=== PATIENT | male | born 1990 | race Caucasian/White ===

== ENCOUNTER 2022-03-19 16:31 | Emergency (ER) | payer OTHER, SELFPAY ==
--- NOTE | ~2022-03-19 | XR_ITS ---
EXAMINATION: XR forearm LT 2V DATE: 03/19/2022 16:59 INDICATION: Left forearm injury and swelling. TECHNIQUE: 2 views of left forearm were obtained. COMPARISON: None. FINDINGS: Bone alignment is normal. No fracture. Joint spaces are normal. There is heterotopic ossifi cation distal to lateral humeral epicondyle. No elbow joint effusion. IMPRESSION: 1. No fracture. Reviewed, dictated and finalized at location A. SANDER IMPRESSION: 1. No fracture.
--- NOTE | ~2022-03-19 | XR_ITS ---
EXAMINATION: XR wrist LT min 3V DATE: 03/19/2022 18:25 INDICATION: Left wrist pain. TECHNIQUE: 4 views of left wrist were obtained. COMPARISON: None. FINDINGS: Bone alignment is normal. No fracture. Joint spaces are normal. IMPRESSION: 1. Normal left wrist. Reviewed, dictated and finalized at location A. HIC ARTIST IMPRESSION: 1. Normal left wrist.
--- NOTE | ~2022-03-19 | US_ITS ---
EXAMINATION: US venous doppler UE DATE: 03/19/2022 18:47 INDICATION: Left forearm pain and swelling. TECHNIQUE: Grayscale ultrasound images without and with compression and Doppler ultrasound images of the left upper extremity veins were obtained. COMPARISON: None. FINDINGS: The visualized portions of the left internal jugular vein, subclavian vein, axillary vein, brachial v eins, basilic vein, cephalic vein, radial vein, and ulnar vein are patent. IMPRESSION: 1. No deep venous thrombosis. Reviewed, dictated and finalized at location A. ITECTURE DRAFTER
[2022-03-19 16:32] VITALS: BP 148/75; PULSE 91; RESP 16; TEMP 36.8; O2SAT 100
--- NOTE | 2022-03-19 18:02 | ED.UPPEXIN ---
HPI - Extremity Injury (Upper) General Chief Complaint: Extremity Injury, Upper Stated Complaint: left arm injury Time Seen by Provider: 03/19/22 17:36 Source: patient Mode of arrival: ambulatory Limitations: no limitations History of Present Illness HPI narrative: Patient is a 31-year-old male who presents the ED with report of left forearm pain and swelling. Patient reports he was at work today and lifting heavy objects when he felt a twinge in his left wrist/forearm. He began having pain and swelling to his left mid forearm, into his left wrist. Pain worse with movement. He has not tried anything for pain. Denies any direct injury. Denies numbness, tingling. Related Data Allergies Allergy/AdvReac Type Severity Reaction Status Date / Time No Known Allergies Allergy Verified 03/19/22 17:30 Review of Systems Review of Systems: CONSTITUTIONAL: Denies fever, chills, or sweats. MUSCULOSKELETAL: See HPI. NEUROLOGIC: Denies tingling, numbness, or weakness. All systems reviewed & are unremarkable except as noted in HPI and below PMFSH Past Medical History Medical History (Updated 03/19/22 @ 19:13 by Yasmin Williamson PA-C) No pertinent past medical history Surgical History Surgical History (Updated 03/19/22 @ 18:03 by Yasmin Williamson PA-C) No pertinent past surgical history Social History Social History (Updated 03/19/22 @ 18:03 by Yasmin Williamson PA-C) Smoking status: Never smoker Exam Narrative: GENERAL: Well appearing, well-nourished, non-toxic, in no acute distress. HEAD: Normocephalic, atraumatic. NECK: Supple. No adenopathy, no masses. RESPIRATORY: Airway patent, respirations nonlabored. CARDIOVASCULAR: Regular rate and rhythm without murmurs, rubs, or gallops. Radial pulses 2+ and equal bilaterally. MUSCULOSKELETAL: Mild limited range of motion of the left wrist flexion, extension, supination/pronation due to pain in left mid forearm. Area of mild swelling noted to left lateral mid forearm. Direct tenderness to palpation. Minimal tenderness over distal radius/ulna/carpal bones. Sensation intact. Good capillary refill. Full ROM of L fingers. No tenderness to palpation over medial or lateral epicondyle of left elbow or over olecranon. SKIN: Warm, dry, normal color. No rashes. NEURO: A&O X3. Speech clear. Cranial nerves II-XII grossly intact. No ataxic movements. PSYCHIATRIC: Appropriate mood and affect. Normal interaction. Course Vital Signs Vital signs: Vital Signs Temperature 98.2 F 03/19/22 16:32 Pulse Rate 91 03/19/22 16:32 Respiratory Rate 16 03/19/22 16:32 Blood Pressure 148/75 H 03/19/22 16:32 Pulse Oximetry 100 03/19/22 16:32 Temperature 98.2 F 03/19/22 16:32 Pulse Rate 91 03/19/22 16:32 Respiratory Rate 16 03/19/22 16:32 Blood Pressure 148/75 H 03/19/22 16:32 Pulse Oximetry 100 03/19/22 16:32 MDM - Extremity Injury (Upper) MDM Narrative Medical decision making narrative: Patient's injury is consistent with musculoskeletal etiology. No signs of neurologic or vascular compromise on physical examination. Area of swelling to L forearm but compartments are soft without signs of compartment syndrome. XR of L wrist and L forearm negative for acute fracture. Venous Doppler US negative. Pain is consistent with exam and injury. Discussed likelihood of muscular or tendon strain/sprain. Patient is felt to be stable for discharge home and further outpatient management and treatment. Will provide orthopedic information should patient continue to have pain. Stepan bandage placed in the ED. Discussed RICE treatment, naproxen sent for pharmacy. Patient given reasons to return. Medical Records Attestation: I reviewed the patient's medical records. Imaging Data Attestation: I personally reviewed and interpreted this imaging study as follows: Radiologist's impression: ITS Impressions Forearm X-Ray 03/19/22 17:01 IMPRESSION: 1. No fracture.
[2022-03-19] MEDS: KETOROLAC (*BKC) 60 MG/2 ML VIAL IM (18:22)
== END 2022-03-19 19:37 | disposition home or self-care (01) ==
PROVIDERS: Emergency Provider Physician Assistant
DX: S56.912A Strain of unspecified muscles, fascia and tendons at forearm level, left arm, initial encounter (principal); X50.0XXA Overexertion from strenuous movement or load, initial encounter; Y99.0 Civilian activity done for income or pay
CPT/HCPCS: 73090; 73110; 93971; 96372; 99284; J1885